=== PATIENT | male | born 1995 | race Caucasian/White ===

== ENCOUNTER 2025-03-10 12:51 | Inpatient (IN) | payer OTHER ==
[~2025-03-10] VITALS: Ht 167.6 cm; Wt 75.3 kg
[2025-03-10 14:07] LABS: PLATELET COUNT (AUTO) 233 K/uL (150-450); RED BLOOD CELL COUNT(AUTO) 4.85 MIL/uL (4.50-5.90); RED CELL DISTRIBUTION WIDTH 13.0 % (11.5-14.5); WHITE BLOOD COUNT (AUTO) 10.5 K/uL (4.5-11.0)
[2025-03-10 14:17] LABS: CALCIUM, TOTAL 8.9 mg/dL (8.8-10.5); CREATININE 0.96 mg/dL (0.60-1.30); GLOMERULAR FILTR. RATE CALC > 60 mL/min (>60); GLUCOSE,RANDOM 100 mg/dL (70-110); SODIUM SERUM 139 mmol/L (136-145); UREA NITROGEN, BLOOD 14 mg/dL (7-18)
[2025-03-10] MEDS: SODIUM CHLORIDE 0.9% 1,000 ML IV ONE (14:34)
[2025-03-10 14:41] LABS: TROPONIN I-HIGH SENSITIVITY 19 ng/L (<76)
[2025-03-10 15:06] LABS: ASPARTATE AMINOTRANSFERASE 30.0 U/L (15-37); TOTAL PROTEIN, SERUM 7.8 g/dL (6.4-8.2)
[2025-03-10 15:23] LABS: AMPHET/METH SCREEN,URINE NEGATIVE (NEGATIVE); BARBITURATE SCREEN, URINE NEGATIVE (NEGATIVE); CANNABINOID SCREEN,URINE NEGATIVE (NEGATIVE); COCAINE SCREEN,URINE NEGATIVE (NEGATIVE); METHADONE SCREEN, URINE NEGATIVE (NEGATIVE); PH,URINE DRUG SCREEN 5.5 (5.0-8.0)
[2025-03-10 15:24] LABS: ALCOHOL, URINE DRUG SCREEN NEGATIVE (NEGATIVE)
[2025-03-10] MEDS ORDERED: LEVE-71 PO (19:20)
[2025-03-10] MEDS ORDERED: ALBUTEROL SULFATE 2.5 MG/0.5 ML NEB SOLUTION NEB PRN (19:30)
[2025-03-10] MEDS ORDERED: MORPHINE SULFATE 4 MG/ML SYRINGE IVP PRN (19:30)
[2025-03-10] MEDS ORDERED: HYDROCODONE/ACETAMINOPHEN 5-325 MG TABLET PO PRN (19:30)
[2025-03-10] MEDS ORDERED: MAGNESIUM HYDROXIDE SUSPENSION 30 ML UDCUP PO PRN (19:30)
[2025-03-10] MEDS ORDERED: ONDANSETRON HCL 4 MG/2 ML VIAL IVP PRN (19:30)
[2025-03-10] MEDS ORDERED: ZOLPIDEM TARTRATE 5 MG TABLET PO PRN (19:30)
[2025-03-10] MEDS ORDERED: IPRATROPIUM BROMIDE 0.5 MG/2.5 ML NEB SOLUTION NEB PRN (19:30)
[2025-03-10] MEDS ORDERED: BISACODYL 10 MG RECTAL RECTAL SUPPOSITORY PR PRN (19:30)
[2025-03-10 23:00] VITALS: BP 124/80; PULSE 60; RESP 18; TEMP 97.7; O2SAT 98
[2025-03-10] MEDS: HEPARIN SODIUM,PORCINE 5,000 UNITS/ML VIAL SQ SCH (23:59)
[2025-03-11 08:28] VITALS: BP 137/83; PULSE 56; RESP 18; TEMP 98.1; O2SAT 99
[2025-03-11] MEDS: PANTOPRAZOLE SODIUM 40 MG DR TABLET PO SCH (08:55)
[2025-03-12 08:53] VITALS: BP 121/83; PULSE 86; RESP 18; TEMP 98.6; O2SAT 98
[2025-03-12 11:57] VITALS: BP 121/83; PULSE 86; RESP 18; TEMP 98.6; O2SAT 98
[2025-03-12] MEDS: LevETIRAcetam 1,000 MG in DEXTROSE 5%-WATER 100 ML IV ONE (12:40)
[2025-03-12 14:51] LABS: GLUCOMETER DEV NAME(LOC) 4S.2; GLUCOSE,POINT OF CARE 93 MG/DL (70-110)
[2025-03-12] MEDS: ACETAMINOPHEN 325 MG TABLET PO PRN (15:40)
[2025-03-12 15:41] VITALS: BP 123/77; PULSE 46; RESP 18; TEMP 98.4; O2SAT 97
[2025-03-12 20:00] VITALS: BP 110/69; PULSE 79; RESP 18; TEMP 97.9; O2SAT 98
[2025-03-13 04:00] VITALS: BP 98/63; PULSE 52; RESP 18; TEMP 97.3; O2SAT 98
[2025-03-13 08:09] VITALS: BP 118/81; PULSE 48; RESP 16; TEMP 97.5; O2SAT 100
== END 2025-03-13 21:56 | disposition left against medical advice (07) | DRG 101 ==
LOC: EMS 12:57 → EDH 19:17 → 6N 22:46
PROVIDERS: ADMIT Hospitalist; ATTEND Hospitalist
DX: G40.909 Epilepsy, unspecified, not intractable, without status epilepticus (principal); F22 Delusional disorders; F32.2 Major depressive disorder, single episode, severe without psychotic features; R45.851 Suicidal ideations; Z53.29 Procedure and treatment not carried out because of patient's decision for other reasons
CPT/HCPCS: 70450; 71045; 72125; 80048; 80076; 80307; 82962; 83735; 83880; 84484; 85025; 93005; 96360; 96372; 99285; G0480; J0712; J1644; J7060; 36415-L1; 36415-TC

== ENCOUNTER → 2025-04-26 | Emergency (ER) | payer OTHER ==
[~2025-04-26] VITALS: Ht 177.8 cm; Wt 61.4 kg
[~2025-04-26] MED LIST: LEVE-71 PO
[2025-04-26 02:42] VITALS: TEMP 98.4
[2025-04-26 04:11] LABS: COVID AG,FIA SOURCE NASAL SWAB
[2025-04-26 04:15] LABS: PLATELET COUNT (AUTO) 213 K/uL (150-450); RED BLOOD CELL COUNT(AUTO) 4.89 MIL/uL (4.50-5.90); RED CELL DISTRIBUTION WIDTH 13.0 % (11.5-14.5); WHITE BLOOD COUNT (AUTO) 8.1 K/uL (4.5-11.0)
[2025-04-26 04:28] LABS: SARS-COV2 (COVID) ANTIGEN,FIA Negative (Negative)
[2025-04-26 04:28] LABS: CALCIUM, TOTAL 8.8 mg/dL (8.8-10.5); CREATININE 1.00 mg/dL (0.60-1.30); GLOMERULAR FILTR. RATE CALC > 60 mL/min (>60); GLUCOSE,RANDOM 98 mg/dL (70-110); SODIUM SERUM 139 mmol/L (136-145); UREA NITROGEN, BLOOD 14 mg/dL (7-18)
[2025-04-26 04:44] LABS: APPEARANCE,URINE CLEAR (CLEAR); GLUCOSE, URINE (UA) NEGATIVE (NEGATIVE); LEUKOCYTE ESTERASE ,URINE NEGATIVE (NEGATIVE); NITRATE,URINE NEGATIVE (NEGATIVE); OCCULT BLOOD,URINE NEGATIVE (NEGATIVE); PH,URINE DRUG SCREEN 7.0 (5.0-8.0); SPECIFIC GRAVITIY, URINE 1.029 (1.003-1.030)
[2025-04-26 05:08] LABS: ALCOHOL, URINE DRUG SCREEN NEGATIVE (NEGATIVE); AMPHET/METH SCREEN,URINE NEGATIVE (NEGATIVE); BARBITURATE SCREEN, URINE NEGATIVE (NEGATIVE); CANNABINOID SCREEN,URINE NEGATIVE (NEGATIVE); COCAINE SCREEN,URINE NEGATIVE (NEGATIVE); METHADONE SCREEN, URINE NEGATIVE (NEGATIVE)
[2025-04-26 06:09] VITALS: BP 138/87; PULSE 68; RESP 14; O2SAT 99
== END | disposition still patient (30) ==
LOC: EMS 02:28
DX: S00.83XA Contusion of other part of head, initial encounter (principal); F41.9 Anxiety disorder, unspecified; Z79.899 Other long term (current) drug therapy; Z20.822 Contact with and (suspected) exposure to COVID-19; W22.01XA Walked into wall, initial encounter; Y93.89 Activity, other specified; Y92.89 Other specified places as the place of occurrence of the external cause; Y99.8 Other external cause status
CPT/HCPCS: 99284; 70450; 87426; 80048; 81003; 85025; 36415; 70486; 80307; G0480